=== PATIENT | female | born 1965 | race Caucasian/White ===

== ENCOUNTER 2020-05-27 07:27 | Outpatient (CLI) | payer OTHER ==
[2020-05-27 14:03] LABS: INR-International Normal Ratio 0.9; PTT 24.7 sec (22.9-36.1); Prothrombin Time 12.6 sec (12.0-14.7)
[2020-05-27 14:06] LABS: Bilirubin Negative (Negative); Blood, Urine Negative (Negative); Clarity Turbid (Clear); Glucose, Urine (Dipstick) Greater than 1000 mg/dL (Negative); Hemoglobin 15.8 g/dL (12.0-16.0); Ketone, Urine Negative (Negative); Leukocyte 500 Leu/uL (Negative); Mean Corpuscular Hemoglobin 29.5 pg (27.0-31.0); Mean Corpuscular Volume 86.6 fL (78.0-98.0); Mean Platelet Volume 8.9 fL (7.4-10.4); Nitrite Negative (Negative); Platelet Count 216 thou/uL (130-400); Protein, Urine (Dipstick) Negative (Neg-Trace); Red Blood Cell (RBC) Count 5.37 mill/uL (4.20-5.40); Specific Gravity, Urine 1.035 (1.002-1.036); Squamous Epithelial 21-50 HPF (0-3); Urobilinogen Normal mg/dL (Less than 2); WBC/HPF Greater than 50 HPF (0-3); White Blood Cell (WBC) Count 8.7 thou/uL (4.8-10.8); pH, Urine 5.5 (5.0-9.0)
[2020-05-27 14:07] LABS: Bacteria/HPF 1+ HPF (None Seen)
[2020-05-27 14:25] LABS: Anion Gap 18 mmol/L (10-20); BUN (Urea Nitrogen) 8 mg/dL (9.8-20.1); Calc. Creatinine Clearance 0 mL/min (70-130); Calcium 9.3 mg/dL (7.8-10.44); Carbon Dioxide 22 mmol/L (22-29); Chloride 100 mmol/L (98-107); Estimated GFR-MDRD 69; Glucose 385 mg/dL (70-105); Potassium 4.3 mmol/L (3.5-5.1); Sodium 136 mmol/L (136-145)
[2020-05-28 14:15] LABS: SARS-CoV-2 MS2 Positive; SARS-CoV-2 N Gene Negative; SARS-CoV-2 S Gene Negative; SARS-CoV-2 by NAA Not Detected (NotDetected); SARS-CoV-2 orf1ab Negative
--- NOTE | 2020-05-28 15:38 | EKG ---
Test Reason : Blood Pressure : / mmHG Vent. Rate : 100 BPM Atrial Rate : 100 BPM P-R Int : 138 ms QRS Dur : 068 ms QT Int : 330 ms P-R-T Axes : 070 056 045 degrees QTc Int : 425 ms Normal sinus rhythm Low voltage QRS Borderline ECG Confirmed by VIDAL JEAN ([id number]) on 05/28/2020 3:38:17 PM Referred By: PRATIMA Confirmed By:VIDAL JEAN
== END 2020-05-27 07:28 | disposition home or self-care (01) ==
LOC: LABBT 07:27
PROVIDERS: ATTEND Urology
DX: Z01.818 Encounter for other preprocedural examination (principal); Z11.59 Encounter for screening for other viral diseases; N30.10 Interstitial cystitis (chronic) without hematuria; G89.29 Other chronic pain; R10.2 Pelvic and perineal pain
CPT/HCPCS: 80048; 81001; 85027; 85610; 85730; 87086; 87635; 93005; 93010; U0003